=== PATIENT | female | born 1985 | race Caucasian/White ===

== ENCOUNTER 2022-05-27 11:42 | Outpatient (CLI) | payer OTHER, MEDICAID, SELFPAY ==
[2022-05-27 13:08] LABS: Chloride* 99 mmol/L (96-114); Potassium* 3.7 mmol/L (3.6-5.1); Sodium* 136 mmol/L (135-149)
[2022-05-27 13:11] LABS: Blood Urea Nitrogen* 17 mg/dL (5-24); Carbon Dioxide* 28 mmol/L (20-32); Creatinine* 0.8 mg/dL (0.5-1.5); Estimated Glomerular Filt Rate 99 ml/min; Glucose* 92 mg/dL (60-115)
[2022-05-27 13:12] LABS: Calcium* 9.4 mg/dL (8.4-10.6)
[2022-05-27 14:17] LABS: Free T4 Free Thyroxine* 1.09 ng/dL (0.70-1.85)
== END 2022-05-27 11:43 | disposition home or self-care (01) ==
PROVIDERS: PCP Obstetrics & Gynecology; Visit Provider Internal Medicine
DX: E03.9 Hypothyroidism, unspecified (principal); F41.1 Generalized anxiety disorder; L30.9 Dermatitis, unspecified
CPT/HCPCS: 80048; 84439; 84443

== ENCOUNTER 2022-09-18 08:18 | Outpatient (CLI) | payer OTHER, MEDICAID, SELFPAY ==
[2022-09-18 14:35] LABS: Chloride* 99 mmol/L (96-114); Potassium* 3.9 mmol/L (3.6-5.1); Sodium* 136 mmol/L (135-149)
[2022-09-18 14:38] LABS: Blood Urea Nitrogen* 16 mg/dL (5-24); Carbon Dioxide* 30 mmol/L (20-32); Creatinine* 0.8 mg/dL (0.5-1.5); Estimated Glomerular Filt Rate 98 ml/min
[2022-09-18 14:39] LABS: Calcium* 9.7 mg/dL (8.4-10.6); Glucose* 79 mg/dL (60-115)
== END 2022-09-18 08:19 | disposition home or self-care (01) ==
PROVIDERS: PCP Internal Medicine; Visit Provider Internal Medicine
DX: E03.9 Hypothyroidism, unspecified (principal); I10 Essential (primary) hypertension
CPT/HCPCS: 80048; 84443

== ENCOUNTER 2022-09-26 13:13 | Outpatient (CLI) | payer OTHER, MEDICAID, SELFPAY ==
[2022-09-26 16:49] LABS: Albumin* 4.3 g/dL (3.3-5.0)
[2022-09-26 16:52] LABS: Alanine Aminotransferase* 20 U/L (4-35); Alkaline Phosphatase* 60 U/L (40-150); Aspartate Amino Transferase* 26 U/L (12-35); Bilirubin Direct* 0.2 mg/dL (0.0-0.5); Bilirubin Total* 0.4 mg/dL (0.1-1.5)
[2022-09-26 17:05] LABS: Vitamin D 25 Hydroxy* 39 ng/mL (30-80)
== END 2022-09-26 13:14 | disposition home or self-care (01) ==
PROVIDERS: PCP Internal Medicine; Visit Provider Internal Medicine
DX: Z01.419 Encounter for gynecological examination (general) (routine) without abnormal findings (principal); R53.81 Other malaise; R53.83 Other fatigue; I10 Essential (primary) hypertension; E03.9 Hypothyroidism, unspecified; F41.1 Generalized anxiety disorder
CPT/HCPCS: 80076; 82306

== ENCOUNTER 2023-08-28 08:28 | Outpatient (CLI) | payer OTHER, MEDICAID, SELFPAY | END 2023-08-28 08:29 | disposition home or self-care (01) | LOC: NFLDREF 09-03 12:16 | PROVIDERS: PCP Internal Medicine; Referring Provider Internal Medicine; Visit Provider Internal Medicine | DX: R53.83 Other fatigue (principal) | CPT/HCPCS: 80053; 82306; 82533; 82607; 82728; 84443 ==

== ENCOUNTER 2024-02-03 11:00 | Outpatient (CLI) | payer OTHER, SELFPAY | END 2024-02-03 11:01 | disposition home or self-care (01) | LOC: NFLDREF 02-04 05:45 | PROVIDERS: PCP Internal Medicine; Referring Provider Internal Medicine; Visit Provider Internal Medicine | DX: N92.0 Excessive and frequent menstruation with regular cycle (principal) | CPT/HCPCS: 84443 ==

== ENCOUNTER 2024-02-09 16:53 | Outpatient (CLI) | payer OTHER, SELFPAY ==
--- NOTE | 2024-02-09 17:00 | US_ITS ---
Patient: MAYE BROWN Facility:?[facility] Patient ID:?[id number] Site Patient ID:?[id number]. Site :?[id number] Study:?US-Pelvis PELVIS TA AND TV-02/09/2024 5:47:38 PM Ordering Physician:?GAL JETT M.D. Final Report: INDICATION: Excessive and frequent menstruation TECHNIQUE: Transabdominal and transvaginal scanning was performed. Transvaginal scanning was performed to optimally evaluate the endometrium and adnexa. Ovarian blood flow was evaluated with color-flow doppler. COMPARISON: None. FINDINGS: The uterus is mildly enlarged, measuring 9.0 x 4.5 x 6.5 cm. A submucosal posterior uterine fundal fibroid measuring 2.8 x 2.6 x 1.7 cm is demonstrated as well as a submucosal right posterior uterine body fibroid measuring 1.7 x 1.6 x 1.3 cm. An intramural left anterior uterine body fibroid measuring 1.3 x 1.1 x 1.1 cm is noted. The endometrial stripe is normal in thickness at 14 mm. The ovaries are normal in size and contain a number of follicles. The right ovary measures 3.3 x 2.6 x 2.4 cm and left 2.8 x 2.0 x 1.8 cm. Ovarian blood flow is demonstrated with color-flow doppler. No adnexal mass is evident. No free fluid is demonstrated. IMPRESSION: 1. Mildly enlarged uterus with uterine fibroids, 2 of which are submucosal in location. 2. Normal endometrial stripe thickness at 14 mm. Dictated by Luke Dorsey MD @ 02/10/2024 7:43:27 AM Signed by:?Luke Dorsey MD @02/10/2024 7:43:27 AM (Electronic Signature)
== END 2024-02-09 16:54 | disposition home or self-care (01) ==
LOC: US 16:53
PROVIDERS: PCP Internal Medicine; Visit Provider Internal Medicine
DX: N92.0 Excessive and frequent menstruation with regular cycle (principal); D25.0 Submucous leiomyoma of uterus; N85.2 Hypertrophy of uterus
CPT/HCPCS: 76830; 76856